=== PATIENT | male | born 1990 | race Caucasian/White ===

== ENCOUNTER 2021-04-18 21:19 | Emergency (ER) | payer OTHER ==
[~2021-04-18] VITALS: Ht 190.5 cm; Wt 97.5 kg
[2021-04-19] MEDS ORDERED: PERCOCET 7.5-31 EAC1 PO (00:07)
[2021-04-19] MEDS ORDERED: MEDROLDOSEPACK PO (00:07)
[2021-04-19] MEDS ORDERED: IBUPROFEN 800800 MG PO (00:07)
[2021-04-19] MEDS ORDERED: FLEXERIL PO (00:07)
[2021-04-19 00:23] VITALS: BP 137/95
== END 2021-04-19 00:15 | disposition home or self-care (01) ==
LOC: M.ERS 21:19
DX: M54.5 Low back pain (principal)